=== PATIENT | male | born 1955 | race Caucasian/White ===

== ENCOUNTER → 2018-03-28 | Outpatient (CLI) | payer BC, OTHER ==
[2018-03-28 15:51] LABS: Potassium 4.1 mmol/L (3.5-5.1)
[2018-03-28 16:04] LABS: Basophils % (A) 0 %; Eosinophils # (A) 0.1 k/uL (0-0.7); Eosinophils % (A) 1 %; HCT 45.3 % (39.0-53.0); HGB 14.6 gm/dL (13.0-17.5); Lymphocytes # (A) 2.6 k/uL (1.0-4.8); Lymphocytes % (A) 28 %; MCH 30.9 pg (25.0-35.0); MCHC 32.2 g/dL (31.0-37.0); MCV 95.7 fL (80.0-100.0); Mean Platelet Volume 6.8; Monocytes # (A) 0.5 k/uL (0-1.0); Monocytes % (A) 5 %; Neutrophils % (A) 64 %; Platelet Count 227 k/uL (150-450); RBC 4.73 m/uL (4.30-5.90); RDW 13.2 % (11.5-15.5); WBC 9.3 k/uL (3.8-10.6)
== END | disposition home or self-care (01) ==
LOC: LABPAT 15:00
PROVIDERS: ATTEND Orthopaedic Surgery
DX: Z01.818 Encounter for other preprocedural examination (principal); Z01.812 Encounter for preprocedural laboratory examination; M75.42 Impingement syndrome of left shoulder
CPT/HCPCS: 36415; 80051; 85025; 93005

== ENCOUNTER → 2018-04-12 | Day surgery (SDC) | payer BC, OTHER ==
[2018-04-10 08:52] VITALS: BMI 22.5
--- NOTE | 2018-04-11 13:23 | HP ---
HISTORY AND PHYSICAL DATE OF SURGERY: 04/12/2018 Artemio Dinh is a 63-year-old patient seen with progressive left shoulder pain. We discussed treatment options. He elected to proceed with arthroscopy. Consent was obtained. PAST MEDICAL HISTORY: His past medical history is hypertension. PAST SURGICAL HISTORY: Cholecystectomy, lithotripsy. DAILY MEDICATIONS: None reported. SOCIAL HISTORY: Denies tobacco use. PHYSICAL EVALUATION OF THE LEFT SHOULDER: Flexion is 150 degrees, abduction is 90 degrees, external rotation is 50 degrees with weakness, tenderness along the anterolateral acromion rotator cuff insertion site. Positive impingement sign at 80 degrees. Distal neurovascular exam is intact. Left shoulder radiographs show downsloping acromion. MRI of the left shoulder revealed full rotator cuff tear. IMPRESSION: Left shoulder impingement with rotator cuff tear. PLAN: Left shoulder arthroscopy with subacromial decompression probable arthroscopic rotator cuff repair and debridement. MMODL / IJN: [id number] /
[~2018-04-12] MED LIST: DEXAMETHASONE SOD PHOSPHATE 10 MG/ML 1 ML VIAL IV ONE; HYDROcodone/APAP 7.5-325MG 1 EACH TAB PO ONE; LACTATED RINGERS 1,000 ML IV ONE; LACTATED RINGERS 1,000 ML IV SCH; LIDOCAINE 1% 20 ML VIAL (10MG/ML) FOR IV START INTRADERMA PRN; MIDAZOLAM 2 MG/2 ML VIAL IV ONE; ONDANSETRON 4 MG/2 ML VIAL IVP ONE; SCOPOLAMINE 1.5MG/72HR PATCH TRANSDERM ONE; ceFAZolin IN SWFI 2 GM/20 ML SYRINGE IVP ONE
--- NOTE | 2018-04-12 09:08 | P.OP ---
Date of Procedure: 04/12/18 Preoperative Diagnosis: Left shoulder impingement Postoperative Diagnosis: 1. Left shoulder rotator cuff tear 2. Left shoulder impingement 3. Left shoulder acromioclavicular joint osteoarthritis Procedure(s) Performed: 1. Left shoulder arthroscopic rotator cuff repair 2. Left shoulder arthroscopic subacromial decompression 3. Left shoulder arthroscopic Atilio procedure Implants: 1Arthrex 4.75 swivel lock anchor Anesthesia: GETA, regional (Interscalene block) Surgeon: Luis Dillon Estimated Blood Loss (ml): 10 Pathology: none sent Condition: stable Disposition: PACU Indications for Procedure: 63-year-old patient seen with progressive left shoulder pain. After having treatment options discussed, he elected to proceed with arthroscopy. Operative Findings: see description of procedure Description of Procedure: Patient underwent an interscalene block by department of anesthesia. The patient was then taken to the operative suite. The patient underwent a general anesthetic by the department of anesthesia. The patient was placed into a lateral position and secured. There was appropriate padding of the bony prominence. Left shoulder was then prepped and draped in normal sterile orthopedic fashion. We placed the extremity in 10 pounds of longitudinal traction. A posterior incision was now made for a posterior working portal site. The trocar and cannula were inserted into the glenohumeral joint. Arthroscopy was initiated. Spinal needle was now inserted anteriorly, to ascertain the anterior working portal site. An incision was now made in that area, a trocar was inserted followed by a probe. The humeral head appeared unremarkable. The labrum was intact. The biceps tendon was unremarkable. At this point instruments removed from glenohumeral joint. Utilizing the posterior working portal site, the trocar and cannula were inserted into the subacromial space. Arthroscopy initiated. I made an incision 2 fingerbreadths lateral to the acromion. I introduced my trocar followed by my ArthroCare ablator. I now began ablating thick subacromial bursal tissue, which exposed the undersurface of the anterior acromion. There was diminished subacromial space. There was a very prominent anterior acromion. A motorized bur was introduced and a subacromial decompression was performed. I also excised some osteophytes off the inferior aspect of the distal clavicle. The AC joint was visualized and noted to be fairly arthritic. The motorized bur was introduced in the anterior portal site and a Atilio procedure was performed without difficulty, decompressing the AC joint nicely. I turned my attention to the rotator cuff. There was some significant partial tearing along the mid body distal supraspinatus. Upon probing the area there was a full-thickness perforation. I debrided the margins getting down to stable tendon tissue. The defect measured 11.5 cm. I abraded the footprint with a motorized bur. I passed 2 everted mattress sutures through good bites of rotator cuff tendon. I punched a hole on our abraded footprint for anchor insertion. I now introduced the eyelet into our pre-punch hole, tensioned the sutures and introduced anchor with good bite and purchase. Residual suture limbs were clipped. The repair was probed and found to be stable. We had good compression of the tendon along the entire footprint. I injected 1 mL Renue intra-articular. Instruments now removed from the portal sites. All portal sites were approximated with nylon suture. Sterile dressings were applied followed by a shoulder sling. The patient was awakened, transferred to a bed, and taken to recovery in stable condition.
[2018-04-12 09:13] VITALS: TEMP 97
[2018-04-12] MEDS: HYDROmorphone 0.5 MG/0.5 ML SYRINGE IVP PRN ×2 (09:42→09:53)
[2018-04-12 10:08] VITALS: RESP 18
[2018-04-12 10:55] VITALS: BP 149/84; PULSE 68
--- NOTE | 2018-04-12 18:19 | P.ONQ ---
Anesthesiology Proc Note - PNB - Peripheral Nerve Block Performed Left Interscalene Single Time Out Performed: Yes Procedure Start Time: 06:59 Procedure Stop Time: 07:12 Indication: Acute Post-Operative Pain, Requested by physician Sedation Type: Sedate with meaningful contact maintained Preparation: Sterile Prep Position: Supine Needle Size: 50mm (2") Needle Gauge: 21 Technique: Ultrasound Injectate: 0.5% Ropivacaine (see comment for volume) (ropi .5% 30cc) Blood Aspirated: No Pain Paresthesia on Injection Noted: No Resistance on Injection: Normal Events: Uneventful and Well Tolerated
== END | disposition home or self-care (01) ==
LOC: OR 05:45
PROVIDERS: ATTEND Orthopaedic Surgery
DX: M75.112 Incomplete rotator cuff tear or rupture of left shoulder, not specified as traumatic (principal); M75.42 Impingement syndrome of left shoulder; M19.012 Primary osteoarthritis, left shoulder; M25.712 Osteophyte, left shoulder; I10 Essential (primary) hypertension; K21.9 Gastro-esophageal reflux disease without esophagitis; Z79.899 Other long term (current) drug therapy; Z90.49 Acquired absence of other specified parts of digestive tract
CPT/HCPCS: 64415; 29827; 29826; 29824; C1713; C1765; J2250; J1100; J2405; J1170; J0690

== ENCOUNTER 2018-07-16 08:39 | Day surgery (SDC) | payer OTHER ==
[2018-07-12 15:03] VITALS: BMI 22.4
--- NOTE | 2018-07-15 18:42 | HP ---
HISTORY AND PHYSICAL REASON FOR ADMISSION: Surgery scheduled for 07/16/2018 Artemio James is a 63-year-old patient seen with left shoulder adhesive capsulitis with history of rotator cuff repair. We discussed options. He elected to proceed with manipulation under anesthesia, left shoulder with steroid injection. Consent regarding the procedure was obtained. PAST MEDICAL HISTORY: Hypertension. PAST SURGICAL HISTORY: Cholecystectomy, lithotripsy, left shoulder arthroscopy. MEDICATIONS: Triamcinolone. Zyrtec. ALLERGIES: None. SOCIAL HISTORY: Denies tobacco use. PHYSICAL EVALUATION: Of the left shoulder, flexion 80 degrees, abduction 90 degrees, external rotation is 45 degrees with weakness. He has well-healed arthroscopic portal sites. His distal neurovascular exam is intact. RADIOGRAPHS: Radiographs of the left shoulder revealed a stable conversion to a flat anterior acromion, stable AC joint resection. IMPRESSION: 1. Left shoulder adhesive capsulitis. 2. History of left shoulder arthroscopic rotator cuff repair. PLAN: Manipulation under anesthesia, left shoulder steroid injection. Surgery is scheduled for 07/16/2018. MMODL / IJN: [id number] /
[~2018-07-16 08:39] MED LIST changes: -DEXAMETHASONE SOD PHOSPHATE 10 MG/ML 1 ML VIAL IV ONE; -HYDROcodone/APAP 7.5-325MG 1 EACH TAB PO ONE; -LACTATED RINGERS 1,000 ML IV ONE; -LACTATED RINGERS 1,000 ML IV SCH; -MIDAZOLAM 2 MG/2 ML VIAL IV ONE; -ONDANSETRON 4 MG/2 ML VIAL IVP ONE; -SCOPOLAMINE 1.5MG/72HR PATCH TRANSDERM ONE
[2018-07-16 09:12] VITALS: TEMP 97.1
[2018-07-16] MEDS ORDERED: LIDOCAINE 1% 20 ML VIAL (10MG/ML) FOR IV START INTRADERMA ONE (09:22)
[2018-07-16] MEDS: LACTATED RINGERS 1,000 ML IV SCH ×2 (09:22→09:24)
[2018-07-16] MEDS ORDERED: PROPOFOL 10 MG/ML 20 ML VIAL IV ONE (09:40)
[2018-07-16] MEDS ORDERED: KETOROLAC 30 MG/ML 1 ML VIAL ONE (09:40)
[2018-07-16] MEDS ORDERED: LIDOCAINE 1% INJ 10MG/ML (20 ML MDV) ONE (09:40)
[2018-07-16] MEDS ORDERED: fentaNYL (PF) 50 MCG/ML 2 ML AMP ONE (09:40)
[2018-07-16] MEDS ORDERED: methylPREDNISolone ACETATE 80 MG/ML 1 ML VIAL INTRAARTIC ONE (09:50)
[2018-07-16] MEDS ORDERED: BUPIVACAIN-EPI 0.5%-1:200,000 30 ML VIAL INTRAARTIC ONE (09:50)
--- NOTE | 2018-07-16 09:54 | P.OP ---
Date of Procedure: 07/16/18 Preoperative Diagnosis: Left shoulder adhesive capsulitis Postoperative Diagnosis: Left shoulder adhesive capsulitis Procedure(s) Performed: Manipulation under anesthesia left shoulder with steroid injection Anesthesia: MAC, local Surgeon: Luis Dillon Estimated Blood Loss (ml): 0 Pathology: none sent Condition: stable Disposition: PACU Indications for Procedure: 63-year-old patient seen with persistent left shoulder adhesive capsulitis. We discussed manipulation under anesthesia with steroid injection. He was agreeable, consent was obtained. Operative Findings: See description of procedure Description of Procedure: The patient was taken to a monitored anesthesia care. Patient underwent IVC by the department of anesthesia. Once sufficient anesthesia was noted a manipulation was performed to the left shoulder achieving near full range of motion with audible tearing of the adhesions. I now prepped and draped in the anterior aspect the left shoulder in the normal fashion. I injected 1 mL Depo- Medrol and 2 mL half percent plain Marcaine intra-articular. The shoulder was again taken through range of motion. A sterile Band-Aid was applied to the injection site. The patient had tolerated the procedure well.
[2018-07-16] MEDS: HYDROmorphone 0.5 MG/0.5 ML SYRINGE IVP PRN ×2 (10:31→10:36)
[2018-07-16 10:47] VITALS: RESP 18
[2018-07-16 11:33] VITALS: BP 120/78; PULSE 68
== END 2018-07-16 11:33 | disposition home or self-care (01) ==
LOC: OR 08:39
PROVIDERS: ATTEND Orthopaedic Surgery
DX: M75.02 Adhesive capsulitis of left shoulder (principal); I10 Essential (primary) hypertension; K21.9 Gastro-esophageal reflux disease without esophagitis; Z98.890 Other specified postprocedural states; Z90.49 Acquired absence of other specified parts of digestive tract; Z79.899 Other long term (current) drug therapy
CPT/HCPCS: 23700; J1040; J2001; J3010; J1885; J2704; J1170

== ENCOUNTER → 2021-08-26 | Outpatient (CLI) | payer OTHER ==
[2021-08-26 08:19] VITALS: BP 142/83; PULSE 52; RESP 18; TEMP 98
--- NOTE | 2021-08-26 08:42 | P.PAINPG ---
Objective - Vital Signs Vital signs: Vital Signs Temp 98.0 F 08/26/21 08:14 Pulse 52 L 08/26/21 08:14 Resp 18 08/26/21 08:14 BP 142/83 08/26/21 08:14 Pulse Ox 98 08/26/21 08:14 FiO2 Intake & Output 08/25/21 08/26/21 08/26/21 18:59 06:59 18:59 Weight 77.111 kg PQRS Measure Charge Sheet Mode of Arrival: Ambulatory Comment: HISTORY OF PRESENT ILLNESS: 66 yr old male as a referral from Dr Dillon presents today with severe and chronic LBP secondary to spondylosis, disc bulges and facet arthropathy for evaluation. Pt states he experiences lower back pain, 3 out of 10 in intensity, stiff, achy which is provoked with bending and right lateral flexion. Pain shoots and a sharp character towards the right buttock. Pain is relieved with topicals, physical therapy in August 2019 which provided no relief, chiropractic treatments and 2019 which provided no relief, daily home exercise regimen which includes golfing, acupuncture which she is currently in, positioning and rest. PMH: HTN, GERD, OA PSH: Cholecystectomy SH: Negative x 2 FH: Mother-Ovarian CA/. Father-. [place]-TIA/. All: NKDA Meds: See list REVIEW OF ORGAN SYSTEMS: CONSTITUTIONAL: No fevers or chills. No recent weight loss. NEUROLOGICAL: + numbness and tingling along the distal extremities. No seizure disorders or headaches. MUSCULOSKELETAL: + pain PSYCHIATRIC: Denies current depression or suicidal thoughts. Physical Examinations : Constitutional : Cooperative , not in acute distress . Neurologic : Cranial nerve II to XII intact. No focal neurological deficits. Psychiatric : alert & oriented x 3. Matching mood & appropriate affect. Judgment & insight intact. Musculoskeletal : Cervical Spine Motor strength in the deltoid and biceps: Normal right side. Normal Left side Motor strength biceps and the wrist extensors: Normal right side . Normal left side Motor strength in the triceps muscle: Normal right side. Normal left side Deep tendon reflexes: Normal at the biceps. Normal at Brachioradialis. Normal at triceps Vertebral body tenderness to deep palpation over Cervical facet loading test: positive bilaterally Spurling test: positive bilaterally Neck distraction test: positive bilaterally Dru sign: positive bilaterally Lumbar spine Motor strength lower extremities ,thigh and legs 5/5 Right side , 5/5 Left side Deep tendon reflexes : Normal Knee Jerk. Normal Ankle Jerk Vertebral body tenderness over L4 Lumbar facet Loading Test: positive Right / positive Left Range of motion of the lumbar spine Flexion 30 degrees, extension 10 degrees Straight Leg Raise test: Left/ Right positive at degree Marisela test: positive right / positive left. Severe tenderness over the Sacroiliac joint on the Right / Left sides Gaenslen test: positive bilaterally Seated flexion test: positive bilaterally. Sacral spine : Severe tenderness over the Sacroiliac joint: right side / left side Range of motion: Flexion of the lumbar spine <60 degrees Range of motion: Extension of the lumbar spine <20 degrees Gaenslen's Test positive Filipe's Test positive Marisela test: positive right side / left side Thigh Thrust Test Sacral Thrust Test Imaging: MRI without contrast of the lumbar spine from 08/27/19 reviewed Assessment/ Plan : Lumbar spondylosis, lumbar facet arthropathy Recommendation of R paramedian LESI L4-L5. May need a series of injections, up to 3 within a six-month timeframe, for optimal pain relief. Risks, benefits of procedure discussed and patient verbalized understanding. Denies aspirin or anti- coagulant use or medical history of diabetes. Protocol for discontinuation / continuation of medications gautam procedure discussed. All questions answered. I have spent greater than 30 minutes on patient care today. Dr Duffy was available by phone for the evaluation of this patient. The time was used to review the medical records including relevant urine studies and Prescription history (MAPs), review of the available imaging, evaluation and examination of the patient, coordination of care with the medical staff and if applicable referring physicians, as well as creation of the medical record - Pain Location Back Non-Pharmacological Interventions: Chiropractic Treatment, Home Exercise, Physical Therapy, Position/Reposition, Relaxation Technique, Stretching Pharmacological Interventions: Topical Medication PQRS Narrative: Smoking Status Never smoker Blood Pressure 142/83 Pain Intensity [Back] 3 Scale Used Numeric (1 - 10) Hx Alcohol Use (MH) Yes: OCCASSIONAL Home Medications: Ambulatory Orders Cetirizine HCl [Zyrtec] 10 mg PO DAILY 04/10/18 Dexlansoprazole [Dexilant] 60 mg PO DAILY 04/10/18 Pimecrolimus [Elidel] 1 applic TOPICAL DAILY PRN 04/10/18 Triamcinolone 0.5% Cream [Kenalog 0.5% Cream] 1 applic TOPICAL DAILY PRN 04/10/18 Celecoxib [CeleBREX] 50 mg PO 08/26/21 Controlled Substance Measures - Controlled Substance Measures Is patient prescribed a controlled substance at discharge?: No
== END ==
LOC: PNWHC3 07:42
PROVIDERS: ATTEND Specialist
DX: M51.36 Other intervertebral disc degeneration, lumbar region (principal); M47.816 Spondylosis without myelopathy or radiculopathy, lumbar region; I10 Essential (primary) hypertension; M19.90 Unspecified osteoarthritis, unspecified site; K21.9 Gastro-esophageal reflux disease without esophagitis; Z79.899 Other long term (current) drug therapy
CPT/HCPCS: 99211

== ENCOUNTER 2021-10-05 06:01 | Day surgery (SDC) | payer OTHER ==
[~2021-10-05 06:01] MED LIST changes: +LACTATED RINGERS 1,000 ML IV SCH; +LIDOCAINE 1% (10MG/ML) FOR IV START INTRADERMA PRN; -LIDOCAINE 1% 20 ML VIAL (10MG/ML) FOR IV START INTRADERMA PRN; -ceFAZolin IN SWFI 2 GM/20 ML SYRINGE IVP ONE
[2021-10-05 06:27] VITALS: TEMP 97
[2021-10-05] MEDS ORDERED: methylPREDNISolone ACETATE 80 MG/ML 1 ML VIAL ONE (06:53)
[2021-10-05] MEDS ORDERED: fentaNYL (PF) 50 MCG/ML 2 ML AMP ONE (06:53)
[2021-10-05] MEDS ORDERED: MIDAZOLAM 2 MG/2 ML VIAL ONE (06:53)
[2021-10-05] MEDS ORDERED: IOPAMIDOL M200 10 ML VIAL ONE (06:53)
--- NOTE | 2021-10-05 07:07 | P.PCN ---
Date of Procedure: 10/05/21 Procedure(s) Performed: PREOPERATIVE DIAGNOSIS: 1- Lumbar Degenerative Disc Diseases 2-Lumbar spondylosis with Facet arthropathy without myelopathy POSTOPERATIVE DIAGNOSIS: Same as preop diagnosis. PROCEDURE 1. Lumbar epidural steroid injection under fluoroscopic guidance at the L4-5 level. (Fluoroscopy imaging was available in radiology department) 2. Lumbar epidurogram. ANESTHESIA: moderate sedation with intravenous Versed 1 mg ,and fentanyle 50 Mcg Sedation start time : 06:55 Sedation end time : 07:04 EBL: Minimal PROCEDURE INDICATION: The patient with low back pain and radiculitis symptoms unresponsive to conservative treatment. Fluoroscopy was used to optimize visualization of the needle placement and to maximize safety. PROCEDURE DESCRIPTION / TECHNIQUE: The patient was seen and identified in the preoperative area. Risks, benefits, complications including but not limited to infections ,bleeding ,allergic reaction to the medications ,nerve damage and not complete pain releife , and alternatives were discussed with the patient. The patient agreed to proceed with the procedure and signed the consent. IV was started, and vital signs were stable. Patient was taken to the OR and time out was completed. The patient was placed in the prone position on procedure table and a pillow was placed under the abdomen to reduce lumbar lordosis. The lumbosacral area was prepped and draped in the usual sterile fashion.ere closely monitored during the procedure. Conscious sedation was used during the procedure to decrease patients anxiety. Vital signs was monitered during the entire procedure. Using anterior-posterior fluoroscopy, the L4-5 interlaminar space was identified and the skin over this site was marked and then infiltrated with 1% lidocaine subcutaneously. Subsequently, a 20-gauge Tuohy epidural needle was inserted and advanced toward the epidural space using the ``Loss of resistance technique and guided by AP and lateral fluoroscopy. The correct needle position in the epidural space was verified with the injection of 2 mL of the water soluble contrast dye Isovue 200 contrast and observing an excellent epidurogram with the epidural spread of the dye, after negative aspiration for blood and CSF and in the absence of paresthesias. Again after negative aspiration, a 6 ml mixture containing 80 mg of Depo-medrol , and 2 ml of preservative free Normal Saline, and 2 ml of preservative free lidocaine 1% solution was injected and a washout of epidurogram was seen. Needle was withdrawn intact, skin was cleansed, and bandages were applied. COMPLICATIONS: None DISPOSITION / PLANS: The patient was placed in a supine position and transferred to the recovery area in a stable condition for observation. There was no evidence of lower extremity motor or sensory deficit after the procedure. Patient was discharged from the recovery room after meeting discharge criteria. Home discharge instructions were given to the patient by the staff. The patient was reexamined prior to discharge. The patient will schedule a follow up in the clinic in 2-4 weeks.
[2021-10-05] MEDS ORDERED: IV FLUID CONTINUATION 1,000 ML IV ONE (07:11)
[2021-10-05 07:24] VITALS: PULSE 50
[2021-10-05 07:34] VITALS: BP 126/72; RESP 18
--- NOTE | 2021-10-05 09:09 | FL ---
Fluoroscopy INDICATION: Pain FINDINGS: Fluoroscopy time: 2 seconds. Images obtained: One. IMPRESSIONS: 1. Documentation of fluoroscopy.
== END 2021-10-05 07:45 | disposition home or self-care (01) ==
LOC: ORPAIN 06:01
PROVIDERS: ATTEND Specialist
DX: M51.16 Intervertebral disc disorders with radiculopathy, lumbar region (principal); M47.26 Other spondylosis with radiculopathy, lumbar region
CPT/HCPCS: 62323; J2250; J1040; J3010; Q9966

== ENCOUNTER 2021-11-11 06:15 | Day surgery (SDC) | payer OTHER ==
[2021-11-11 06:42] VITALS: RESP 16; TEMP 97
[2021-11-11] MEDS ORDERED: MIDAZOLAM 2 MG/2 ML VIAL ONE (07:16)
[2021-11-11] MEDS ORDERED: fentaNYL (PF) 50 MCG/ML 2 ML AMP ONE (07:16)
[2021-11-11] MEDS ORDERED: IOPAMIDOL M200 10 ML VIAL ONE (07:16)
[2021-11-11] MEDS ORDERED: methylPREDNISolone ACETATE 80 MG/ML 1 ML VIAL ONE ×2 (07:16)
--- NOTE | 2021-11-11 07:29 | P.PCN ---
Date of Procedure: 11/11/21 Procedure(s) Performed: PREOPERATIVE DIAGNOSIS: 1- Lumbar Degenerative Disc Diseases 2-Lumbar spondylosis with Facet arthropathy without myelopathy POSTOPERATIVE DIAGNOSIS: Same as preop diagnosis. PROCEDURE 1. Lumbar epidural steroid injection under fluoroscopic guidance at the L4-5 level. (Fluoroscopy imaging was available in radiology department) 2. Lumbar epidurogram. ANESTHESIA: moderate sedation with intravenous Versed 1 mg ,and fentanyle 50 Mcg Sedation start time : 0 720 Sedation end time : 07:27 EBL: Minimal PROCEDURE INDICATION: The patient with low back pain and radiculitis symptoms unresponsive to conservative treatment. Fluoroscopy was used to optimize visualization of the needle placement and to maximize safety. PROCEDURE DESCRIPTION / TECHNIQUE: The patient was seen and identified in the preoperative area. Risks, benefits, complications including but not limited to infections ,bleeding ,allergic reaction to the medications ,nerve damage and not complete pain releife , and alternatives were discussed with the patient. The patient agreed to proceed with the procedure and signed the consent. IV was started, and vital signs were stable. Patient was taken to the OR and time out was completed. The patient was placed in the prone position on procedure table and a pillow was placed under the abdomen to reduce lumbar lordosis. The lumbosacral area was prepped and draped in the usual sterile fashion.ere closely monitored during the procedure. Conscious sedation was used during the procedure to decrease patients anxiety. Vital signs was monitered during the entire procedure. Using anterior-posterior fluoroscopy, the L4-5 interlaminar space was identified and the skin over this site was marked and then infiltrated with 1% lidocaine subcutaneously. Subsequently, a 20-gauge Tuohy epidural needle was inserted and advanced toward the epidural space using the ``Loss of resistance technique and guided by AP and lateral fluoroscopy. The correct needle position in the epidural space was verified with the injection of 2 mL of the water soluble contrast dye Isovue 200 contrast and observing an excellent epidurogram with the epidural spread of the dye, after negative aspiration for blood and CSF and in the absence of paresthesias. Again after negative aspiration, a 6 ml mixture containing 80 mg of Depo-medrol , and 2 ml of preservative free Normal Saline, and 2 ml of preservative free lidocaine 1% solution was injected and a washout of epidurogram was seen. Needle was withdrawn intact, skin was cleansed, and bandages were applied. COMPLICATIONS: None DISPOSITION / PLANS: The patient was placed in a supine position and transferred to the recovery area in a stable condition for observation. There was no evidence of lower extremity motor or sensory deficit after the procedure. Patient was discharged from the recovery room after meeting discharge criteria. Home discharge instructions were given to the patient by the staff. The patient was reexamined prior to discharge. The patient will schedule a follow up in the clinic in 2-4 weeks.
[2021-11-11] MEDS ORDERED: IV FLUID CONTINUATION 1,000 ML IV ONE (07:35)
[2021-11-11 07:50] VITALS: BP 136/82; PULSE 53
--- NOTE | 2021-11-11 12:56 | FL ---
Fluoroscopy HISTORY: Pain 5 seconds fluoroscopy time supplied to the referring clinician. 1 intraoperative C-arm images docume nt the procedure. See dictated report from anesthesia.
== END 2021-11-11 08:04 | disposition home or self-care (01) ==
LOC: ORPAIN 06:15
PROVIDERS: ATTEND Specialist
DX: M51.16 Intervertebral disc disorders with radiculopathy, lumbar region (principal); M47.26 Other spondylosis with radiculopathy, lumbar region; M54.50 Low back pain, unspecified; F41.9 Anxiety disorder, unspecified
CPT/HCPCS: 62323; J2250; J1040; J3010; Q9966

== ENCOUNTER → 2021-12-08 | Outpatient (CLI) | payer OTHER ==
[2021-12-08 08:16] VITALS: BP 149/88; PULSE 65; RESP 18; TEMP 98.5
--- NOTE | 2021-12-08 14:08 | P.PAINPG ---
PQRS Measure Charge Sheet Comment: A 66 yr old male with a history of severe and chronic low back pain secondary to lumbar degenerative disc diseases and lumbar spondylosis with facet arthropathy without myelopathy presents today for evaluation s/p ISACC L4-L5. Pt states he experienced 60% pain relief x 3 wks s/p procedure. Pain level is cur rently at 2/10 in intensity, constant, localized in the lower lumbar spine, dull in character w shooting towards the BLEs only when bending. Pain is provoked as high as 5/10 w bending. Pain is alleviated with OTC meds, topicals, injections, PT x 6 wks 1 yr ago which was very effective, chiropractic treatments 2 yrs ago, home stretching regimen, repositioning and rest. Interventional pain procedures completed include ISACC L4-L5 x2 Patient is currently on OTC meds Patient denies any side effects of the medication(s), denies excessive drowsiness or sleepiness, denies suicidal ideation and reports that the current pain medication is helping to control the pain and improve activities of daily living. Patient denies any motor or sensory deficits. Patient denies any fever or night sweats, denies any change in the bowel movements or urination. Physical Examination: -Constitutional: Cooperative. Not in acute distress . - Neurologic: Cranial nerve II to XII intact. No focal neurological deficit s. - Psychatric: Alert & oriented x 3. Matching mood & appropriate affect. Judgment and insight intact. - Musculoskeletal: Cervical spine: Muscle bulk/ tone/ strength in the bilateral upper extremities normal Vertebral body tenderness to palpation over Spurling test positive Distraction test positive Facet loading test positive Thoracic spine Muscle bulk / tone/ strength in the bilateral paraspinal muscles normal Vertebral body tender to palpation over Facet loading test positive Lumbar spine: Motor bulk/ tone/ strength lower extremities , thigh and legs : 5/5 Deep tendon reflexes : Normal Knee Jerk. Normal Ankle Jerk . Vertebral body tenderness to palpation over L4 Lumbar Facet Loading Test positive Straight Leg Raise: positive at 30 degrees right side/ left side Gaenslen's Test positive Sacral spine : Severe tenderness over the Sacroiliac joint: right side / left side Range of motion: Flexion of the lumbar spine <60 degrees Range of motion: Extension of the lumbar spine <20 degrees Gaenslen's Test positive Filipe's Test positive Marisela test: positive right side / left side Thigh Thrust Test Sacral Thrust Test Assessment and plan: Chronic low back pain secondary to lumbar degenerative disc disease , lumbar spondylosis with facet arthropathy without myelopathy Recommendation of PT x 6 wks w a focus on lumbar traction & decompression re: M51.36 All patient questions answered I have spent less than 30 minutes on patient care today. Dr Duffy was available by phone for the evaluation of this patient. The time was used to review the medical records including relevant urine studies and Prescription history (MAPs), review of the available imaging, evaluation and examination of the patient, coordination of care with the medical staff and if applicable referring physicians, as well as creation of the medical record PQRS Narrative: Smoking Status Never smoker Pain Intensity [Lower Back] 1 Scale Used Numeric (1 - 10) Hx Alcohol Use (MH) Yes: OCCASSIONAL Home Medications: Ambulatory Orders Cetirizine HCl [Zyrtec] 10 mg PO DAILY 04/10/18 Pimecrolimus [Elidel] 1 applic TOPICAL DAILY PRN 04/10/18 Triamcinolone 0.5% Cream [Kenalog 0.5% Cream] 1 applic TOPICAL DAILY PRN 04/10/18 Rosuvastatin Calcium 5 mg PO HS 10/04/21 Celecoxib [CeleBREX] 200 mg PO DAILY 12/06/21 Pantoprazole [Protonix] 40 mg PO DAILY 12/06/21 Controlled Substance Measures - Controlled Substance Measures Is patient prescribed a controlled substance at discharge?: No
== END ==
LOC: PNWHC3 07:47
PROVIDERS: ATTEND Specialist
DX: M51.36 Other intervertebral disc degeneration, lumbar region (principal); M47.816 Spondylosis without myelopathy or radiculopathy, lumbar region; G89.29 Other chronic pain; F10.90 Alcohol use, unspecified, uncomplicated; Z88.8 Allergy status to other drugs, medicaments and biological substances
CPT/HCPCS: 99211

== ENCOUNTER → 2024-07-22 | Outpatient (CLI) | payer MEDICARE, OTHER ==
[2024-07-22 15:34] VITALS: BP 139/88; PULSE 66; RESP 12; TEMP 98.1
--- NOTE | 2024-07-22 15:58 | P.SLEEP ---
History of Present Illness DATE: 07/22/2024 CONSULTATION/NEW PATIENT EVALUATION HISTORY OF PRESENT ILLNESS/SLEEP-WAKE EVALUATION: 69-year-old gentleman had b een evaluated in the sleep center for possible obstructive sleep apnea hypopnea syndrome and significant excessive daytime sleepiness. SLEEP SCHEDULE: Usually sleep schedule from 10 PM to 5:30 AM 7 days a week. FALLING ASLEEP: Usually no problems with falling asleep. DURING SLEEP: Patient snores and wakes up from sleep 5 times with 2 episodes of nocturia. Positive history of dry mouth and restless leg symptoms. No history of hypnogogical hallucinations, sleep paralysis, or cataplexy. DURING THE DAY/WAKE STATE: In the morning patient wake up tired, falling asleep during the day, has problems with concentration. [place] sleepiness scale is in very high range of 16. Patient takes nap at 2 PM. PAST MEDICAL HISTORY: Acid reflux, hyperlipidemia, prostate cancer, arthritis. PAST SURGICAL HISTORY: Prostatectomy, artificial urinary sphincter, surgical treatment for left kidney stones, cholecystectomy, left shoulder rotator cuff surgery. MEDICATIONS: Please see below. SOCIAL HISTORY: Please see below. FAMILY HISTORY: Please see below. REVIEW OF SYSTEMS: Snoring, multiple awakenings from sleep, sleepiness during the day. No fevers. No double vision. No recent chest pain. No shortness of breath. No abdominal pain. No bleeding episodes. No blood in urine. No seizure episodes. PHYSICAL EXAMINATION: GENERAL: A pleasant patient without any distress. VITAL SIGNS: See below, weight 186.4 pounds, BMI 25.4. HEENT: PERRLA, EOMI. Evaluation of oropharynx showed tongue protrudes midline, low position of soft palate Mallampati 3. NECK: Supple. No JVD. Thyroid is not palpable. 16 inches in circumference. LUNGS: Clear to percussion and to auscultation. Good air exchange. No wheezing or rhonchi. HEART: S1, S2 regular. No murmurs, gallops or rubs. ABDOMEN: Soft and nontender. Bowel sounds are present. No organomegaly appreciated. EXTREMITIES: No clubbing or cyanosis. HIM TECH: Awake, alert, and oriented x3. Cranial nerves 2 to 7 intact. There is no fasciculation or atrophy noted. No focal deficits observed. ASSESSMENT: 1. Snoring, multiple awakenings from sleep, small oropharyngeal airspace with low position of soft palate, sleepiness. Obstructive sleep apnea hypopnea syndrome. 2. Significant excessive daytime sleepiness with [place] Sleepiness Scale 16 dictates necessity to include hypersomnia and narcolepsy in differential diagnosis. 3. History of prostate cancer, status post prostatectomy and urinary sphincter insertion. 4. Hyperlipidemia. 5. Acid reflux. 6 . Arthritis. 7. History of restless leg symptoms. 8. History of leg cramps. PLAN: 1. Polysomnography for evaluation of patient's breathing during sleep and to check for possible periodic limb movements. Multiple sleep latency test for objective evaluation symptoms of significant excessive daytime sleepiness if polysomnogram will be negative for obstructive sleep apnea hypopnea syndrome 2. Following plan after reading sleep study. 3. Preferable position during sleep on the side. 4. No driving if patient feels any sleepiness. Patient is aware of civil and criminal liability for unsafe driving. 5. Sleep hygiene with regular sleep time for at least 7.5-8 ho urs. 6. Watching weight. Thank you very much for referring this patient for consultation. Sincerely, Gregory Escobar MD, PhD, FAASM. Diplomat of [employer], Sleep Medicine Board by [employer] [place] cc: Ani Manning DO Past Medical History Past Medical History: GERD/Reflux, Hyperlipidemia, Osteoarthritis (OA), Prostate Disorder, Skin Disorder Additional Past Medical History / Comment(s): Eczema, hx of kidney stones, states had "bad infection" post lithotripsy, unsure if MRSA, arthritis in hands. History of Any Multi-Drug Resistant Organisms: None Reported Past Surgical History: Orthopedic Surgery Additional Past Surgical History / Comment(s): Left shoulder rotator cuff repair, lithotripsy, pain clinic procedure; gallbladder; artifical urinary spinchter Past Anesthesia/Blood Transfusion Reactions: No Reported Reaction Past Psychological History: No Psychological Hx Reported Smoking Status: Never smoker Past Alcohol Use History: Occasional Past Drug Use History: None Reported - Past Family History Mother Family Medical History: Cancer Additional Family Medical History / Comment(s): Ovarian cancer. Father Family Medical History: Cancer, Dementia Additional Family Medical History / Comment(s): Prostate cancer. Medications and Allergies Home Medications Medication Instructions Recorded Confirmed Type Cetirizine HCl [Zyrtec] 10 mg PO DAILY 04/10/18 12/08/21 History Pimecrolimus [Elidel] 1 applic TOPICAL DAILY PRN 04/10/18 12/08/21 History Triamcinolone 0.5% Cream [Kenalog 1 applic TOPICAL DAILY PRN 04/10/18 07/22/24 History 0.5% Cream] Rosuvastatin Calcium 5 mg PO HS 10/04/21 12/08/21 History Celecoxib [CeleBREX] 200 mg PO DAILY 12/06/21 07/22/24 History Pantoprazole [Protonix] 40 mg PO DAILY 12/06/21 07/22/24 History Ezetimibe [Zetia] 10 mg PO DAILY 07/22/24 07/22/24 History Fexofenadine HCl [Shanna Allergy] 180 mg PO DAILY 07/22/24 07/22/24 History Fluocinonide [Lidex 0.05%] 07/22/24 History Fluticasone Nasal [place] [Flonase 2 spray EA NOSTRIL DAILY 07/22/24 07/22/24 History Nasal [place]] Allergies Allergy/AdvReac Type Severity Reaction Status Date / Time ciprofloxacin [From Cipro] Allergy Unknown Verified 12/08/21 08:05 Physical Exam Vitals: Vital Signs Temp Pulse Resp BP Pulse Ox 07/22/24 15:34 98.1 F 66 12 139/88 96 Intake and Output 07/22/24 07/22/24 07/22/24 06:59 14:59 22:59 Other: Weight 85.275 kg Sleep Note - Sleep Data ESS Total: 16 - Sleep Note Sleep Note: Temperature: 98.1 F Pulse Rate: 66 Respiratory Rate: 12 Blood Pressure: 139/88 SpO2: 96 Height: 6 ft Weight: 85.275 kg BMI: Neck Circumference: 16
== END ==
LOC: 3 N SLEEP 14:37
PROVIDERS: ATTEND Internal Medicine
DX: G47.33 Obstructive sleep apnea (adult) (pediatric) (principal); E78.5 Hyperlipidemia, unspecified; K21.9 Gastro-esophageal reflux disease without esophagitis; M19.90 Unspecified osteoarthritis, unspecified site; Z85.46 Personal history of malignant neoplasm of prostate; Z87.39 Personal history of other diseases of the musculoskeletal system and connective tissue; Z88.1 Allergy status to other antibiotic agents
CPT/HCPCS: 99211

== ENCOUNTER 2024-08-19 19:37 | Outpatient (CLI) | payer MEDICARE, OTHER ==
--- NOTE | 2024-08-28 15:42 | P.PCN ---
Description of Procedure: POLYSOMNOGRAPHY REPORT PROCEDURE(S)/DATE(S): Polysomnography 08/19/2024 CLINICAL: Patient has been seen in the sleep center for evaluation of obstructive sleep apnea-hypopnea syndrome. Please see my consultation. Sleep study has been done for evaluation of patient breathing during the sleep. PROCEDURE: The standard montage for clinical polysomnography included the electroencephalogram, the electrooculogram, the mentalis surface electromyography and Lead II cardiography. The respiratory battery consisted of measurements of nasal/buccal air flow, pressure transducer measurements from nose, thoracic and/or abdominal effort and intercostal surface electromyography. Video monitoring has been done to check for any parasomnia events. Nocturnal oxyhemoglobin saturations were obtained by finger oximetry. Step-[place] titration with positive airway pressure was utilized to control the respiratory events, if necessary. RESULTS: During the diagnostic sleep study sleep efficiency was borderline 87.0%. Latency to sleep onset was normal at 13.0 min. Sleep architecture showed stage NI was normal 7.8%, Delta sleep was normal at 12.6%, REM sleep was slightly decreased 17.6%. Respiratory channel showed 6 obstructive apneas, 0 mixed apneas, 0 central apneas, 28 hypopneas with lowest oxygen level 88%. Total apnea hypopnea index was 5.5. Heart rate was in the range between 47 and 54, average 50. EMG showed 0 periodic limb movements per hour. IMPRESSIONS: 1. Obstructive sleep apnea hypopnea syndrome in mild range. 2. No significant periodic limb movements have been documented. 3. Significant excessive daytime sleepiness with [place] Sleepiness Scale 16. Please see other impressions from consultation PLAN: 1. The patient will have AutoPAP treatment for correction of respiratory abnormalities during the sleep. 2. I will see patient for follow-up visit to evaluate clinical response on treatment, compliance with treatment and [place] adjustments. If patient will continue to have significant sleepiness while on treatment with CPAP we will consider multiple sleep latency test. 3. Sleep hygiene with regular time in bed for at least 7-1/2 hours. 4. No driving if feeling sleepiness. Thank you very much for allowing me to participate in the management of your patient. Sincerely, Gregory Escobar MD, PhD, FAASM. Diplomat of [place] [employer], Sleep Medicine Board by [place] [employer] [facility] [place] cc: Ani Manning DO
== END 2024-08-20 05:50 | disposition home or self-care (01) ==
LOC: 3 N SLEEP 19:37
PROVIDERS: ATTEND Internal Medicine
DX: G47.33 Obstructive sleep apnea (adult) (pediatric) (principal); Z88.1 Allergy status to other antibiotic agents
CPT/HCPCS: 95810